=== PATIENT | female | born 1975 | race Hispanic/Latino ===

== ENCOUNTER 2023-04-07 17:46 | Emergency (ER) | payer SELFPAY ==
[2023-04-07] MEDS ORDERED: diphenhydrAMINE 50 MG/ML VIAL ONE (18:14)
[2023-04-07] MEDS ORDERED: methylPREDNISolone Sod Succ/PF 125 MG/2 ML VIAL ONE (18:14)
[2023-04-07] MEDS ORDERED: Ketorolac Tromethamine 30 MG/ML VIAL ONE (18:14)
[2023-04-07] MEDS ORDERED: Metoclopramide HCl 10 MG/2 ML VIAL ONE (18:14)
[2023-04-07] MEDS ORDERED: Magnesium 2 GM/50 ML BAG (IN WATER) ONE (18:15)
[2023-04-07 18:51] LABS: #Basophils 0.1 10x3/uL (0.0-0.2); #Eosinphils 0.1 10x3/uL (0.0-0.5); #Monocytes 0.5 10x3/uL (0.0-1.1); #Neutrophils 4.5 10x3/uL (1.5-8.4); %Basophils 0.7 % (0.0-2.0); %Eosinophils 1.2 % (0.0-6.0); %Monocytes 6.7 % (0.0-10.0); %Neutrophils 66.1 % (40.0-75.0); Mean Corpuscular HGB CONC 34.1 g/dL (32.0-36.0); Mean Corpuscular Hemoglobin 31.6 pg (27.0-33.0); Mean Corpuscular Volume 92.6 fl (81.6-98.3); Mean Platelet Volume 10.6 fl (7.4-10.4); Platelet Count 243 10x3/uL (150-450); RBC Distribution Width 12.3 % (11.5-14.5); White Blood Cell (WBC) Count 6.7 10x3/uL (3.5-10.5)
[2023-04-07 19:06] LABS: BHCG - Serum Negative (NEGATIVE); Pregs Control Background? CLEAR/WHITE (CLR/WHITE); Pregs Control Bar Appear? YES (CONTROL BAR)
[2023-04-07 19:13] LABS: ALT (SGPT) 15 U/L (8-55); AST (SGOT) 16 U/L (5-34); Albumin 3.9 g/dL (3.5-5.0); Alkaline Phosphatase 50 U/L (40-110); Anion Gap 9 mmol/L (10-20); BUN (Urea Nitrogen) 19 mg/dL (7.0-18.7); Bilirubin, Total 0.4 mg/dL (0.2-1.2); Calc. Creatinine Clearance 0 mL/min (70-130); Calcium 9.1 mg/dL (7.8-10.44); Carbon Dioxide 27 mmol/L (22-29); Chloride 109 mmol/L (98-107); Estimated GFR 86; Globulin 2.7 g/dL (2.4-3.5); Glucose 95 mg/dL (70-105); Potassium 3.4 mmol/L (3.5-5.1); Protein, Total 6.6 g/dL (6.0-8.3); Sodium 142 mmol/L (136-145)
== END 2023-04-07 20:11 | disposition home or self-care (01) ==
LOC: CSHERS 17:46
DX: R51.9 Headache, unspecified (principal)
CPT/HCPCS: 36415; 70450; 80053; 84703; 85025; 96374; 96375; J1200; J1885; J2765; J2930; J3475